=== PATIENT | female | born 2000 | race Two or more races ===

== ENCOUNTER 2024-06-08 17:38 | Emergency (ER) | payer MEDICAID ==
[~2024-06-08] VITALS: Ht 175.3 cm; Wt 150.0 kg
[2024-06-08 17:50] VITALS: O2SAT 99
[2024-06-08 18:25] VITALS: BP 128/82; PULSE 94; RESP 20; TEMP 36.9; O2SAT 100
[2024-06-08 18:44] LABS: BASOPHILS % 0.7 % (0.0-2.0); DIFFERENTIAL COMMENT 0; EOSINOPHILS % 2.4 % (0.0-5.0); HEMATOCRIT. 39.2 % (36.0-48.0); HEMOGLOBIN. 12.4 g/dL (12.0-16.0); LYMPHOCYTES % 15.9 % (20.0-50.0); MEAN CORPUSCULAR HEMOGLOBIN 24.5 pg (28.0-32.0); MEAN CORPUSCULAR HGB CONC 31.7 g/dL (31.0-37.0); MEAN CORPUSCULAR VOLUME 77.2 fL (81.0-99.0); MEAN PLATELET VOLUME 7.5 fl (7.4-10.4); MONOCYTES % 5.5 % (2.0-8.0); NEUTROPHILS % 75.5 % (40.0-76.0); PLATELET 385 x1000/uL (130-400); RED BLOOD CELL COUNT 5.08 mill/uL (4.2-5.4); RED CELL DISTRIBUTION WIDTH 18.4 % (11.6-14.6); WHITE BLOOD COUNT 16.3 x1000/uL (4.5-11.0)
[2024-06-08 18:51] LABS: CHLORIDE 107 mEq/L (98-107); POTASSIUM 4.2 mEq/L (3.5-5.1); SODIUM 138 mEq/L (136-145)
[2024-06-08 18:52] LABS: CALCIUM 9.1 mg/dL (8.7-10.4); CARBON DIOXIDE 22 mEq/L (21-32)
[2024-06-08 18:57] LABS: CREATININE 0.6 mg/dL (0.6-1.0); GLUCOSE 116 mg/dL (70-105); UREA NITROGEN BLOOD 9 mg/dL (9-23)
[2024-06-08 18:59] LABS: ALANINE AMINOTRANSFERASE 22 IU/L (10-49); ALBUMIN 3.6 g/dL (3.2-4.8); ASPARTATE AMINOTRANSFERASE 35 IU/L (<34); BILIRUBIN DIRECT 0.1 mg/dL (<=3.0)
[2024-06-08 19:00] LABS: BILIRUBIN TOTAL 0.4 mg/dL (0.1-1.0); PROTEIN TOTAL 7.1 g/dL (6.0-8.3)
[2024-06-08] MEDS: ONDANSETRON 4MG ODT PO ONE (19:07)
[2024-06-08] MEDS ORDERED: METOCLOPRAMIDE HCL 10MG/2ML VIAL IM ONE (20:00)
[2024-06-08] MEDS ORDERED: KETOROLAC 30MG/ML VIAL IM ONE (20:00)
[2024-06-08] MEDS ORDERED: DIPHENHYDRAMINE 50MG/ML VIAL IM ONE (20:00)
[2024-06-08] MEDS: METHYLPREDNISOLONE SOD SUCC 125MG/2ML (ACT-O-VIAL) IV ONE (22:26)
[2024-06-08] MEDS: DIPHENHYDRAMINE 50MG/ML VIAL IM NR (22:26)
[2024-06-08] MEDS: SODIUM CHLORIDE 0.9% 1,000 ML IV ONE (22:26)
[2024-06-08] MEDS: FAMOTIDINE 20MG TABLET PO ONE (22:26)
[2024-06-08] MEDS: KETOROLAC 30MG/ML VIAL IM NR (22:26)
[2024-06-08] MEDS: METOCLOPRAMIDE HCL 10MG/2ML VIAL IM NR (22:26)
== END 2024-06-09 00:39 | disposition home or self-care (01) ==
LOC: ER 17:38
DX: R11.2 Nausea with vomiting, unspecified (principal); R51.9 Headache, unspecified; J45.909 Unspecified asthma, uncomplicated; Z90.49 Acquired absence of other specified parts of digestive tract
CPT/HCPCS: 80076; 80048; 81025; 83690; 85025; 36415; 70450; 96361; 96372; 96374; 99285; Q0162; J1200; J1885; J2919; J2765; J7030; Z7610